=== PATIENT | male | born 1990 | race African-American/Black ===

== ENCOUNTER 2018-05-14 13:57 | Emergency (ER) | payer BC ==
[~2018-05-14] VITALS: Ht 170.2 cm; Wt 75.7 kg
[2018-05-14] MEDS ORDERED: ASPIRIN 81 MG CHEW TAB PO STA (14:17)
--- NOTE | 2018-05-14 14:43 | Diagnostic Imaging Report ---
EXAMINATION: CXR 2 VIEW - HOPD INDICATION: Chest pain. COMPARISON: None FINDINGS: TUBES and LINES: None. LUNGS: Lungs are well inflated. Lungs are clear. There is no evidence of pneumonia or pulmonary edema. PLEURA: No pleural effusion or pneumothorax. HEART AND MEDIASTINUM: The cardiomediastinal silhouette is unremarkable. BONES AND SOFT TISSUES: No acute osseous lesion. Soft tissues are unremarkable. UPPER ABDOMEN: No free air under the diaphragm. IMPRESSION: No acute radiographic abnormality. Signed by: Dr. Conner Conn MD on 05/14/2018 2:39 PM
[2018-05-14] MEDS ORDERED: PRILOSEC10 M1 PO (17:05)
--- NOTE | 2018-05-14 17:10 | NUR ---
Second set of cardiac enzymes collected. Awaiting result.
[2018-05-14 17:51] VITALS: BP 154/96
== END 2018-05-14 17:53 | disposition home or self-care (01) ==
LOC: FSED 13:57
DX: R07.89 Other chest pain (principal); F41.9 Anxiety disorder, unspecified
CPT/HCPCS: 71046; 80048; 80076; 80307; 81003; 82553; 84484; 85025; 93005; 99284